=== PATIENT | female | born 1960 | race Caucasian/White ===

== ENCOUNTER 2022-10-18 12:38 | Day surgery (SDC) | payer OTHER ==
[2022-10-18] MEDS ORDERED: LIDOCAINE HCL 2% 100 MG/5 ML IJ ONE (12:39)
[2022-10-18] MEDS ORDERED: DIPRIVAN 200 MG/20 ML IV ONE (14:20)
--- NOTE | 2022-10-18 15:08 | XRAY ---
Indication: Bilateral L4-S1 MBB. Intraoperative fluoroscopy provided for 14 seconds. Single digital spot image submitted for interpretation demonstrates posterior needle tips projecting over the expected left and right L4-S1 nerve roots. Correlate with intraoperative findings/report.
[2022-10-18] MEDS ORDERED: Lactated Ringers 1,000 ML IV ONE (16:17)
--- NOTE | 2022-10-18 16:27 | XRAY ---
14 seconds of fluoroscopy was used in surgery for a bilateral L4-S1 MBB.
== END 2022-10-18 14:50 | disposition home or self-care (01) ==
LOC: SDC-PAIN 12:38
PROVIDERS: ATTEND Psychiatry & Neurology Pain Medicine
DX: M47.816 Spondylosis without myelopathy or radiculopathy, lumbar region (principal); Z79.899 Other long term (current) drug therapy
CPT/HCPCS: 64493; 64494; 72020; 77002; J2704

== ENCOUNTER 2023-02-14 12:40 | Day surgery (SDC) | payer OTHER ==
[2023-02-14] MEDS ORDERED: Depo-Medrol 40 MG/ML IM ONE (12:41)
[2023-02-14] MEDS ORDERED: BUPIVACAINE 0.5% VIAL IJ ONE (12:41)
[2023-02-14] MEDS ORDERED: Versed 2 MG/2 ML Injection ONE (15:18)
[2023-02-14] MEDS ORDERED: DIPRIVAN 200 MG/20 ML IV ONE (16:28)
[2023-02-14] MEDS ORDERED: Lactated Ringers 1,000 ML IV ONE (17:05)
--- NOTE | 2023-02-14 21:26 | XRAY ---
Indication: Bilateral SI joint injection. Intraoperative fluoroscopy provided for 16 seconds. 4 digital spot image submitted for interpretation demonstrates posterior needle tip projecting over the expected left and right SI joint. Correlate with intraoperative findings/report.
--- NOTE | 2023-02-15 09:39 | XRAY ---
16 seconds of fluoroscopy was used in surgery for a bilateral sacroiliac joint injection.
== END 2023-02-14 17:00 | disposition home or self-care (01) ==
LOC: SDC-PAIN 12:40
PROVIDERS: ATTEND Psychiatry & Neurology Pain Medicine
DX: M46.1 Sacroiliitis, not elsewhere classified (principal)
CPT/HCPCS: 27096; 72202; 77002; G0260; J1030; J2250; J2704

== ENCOUNTER 2023-04-18 13:47 | Day surgery (SDC) | payer OTHER ==
[2023-04-18] MEDS ORDERED: BUPIVACAINE 0.5% VIAL IJ ONE (13:48)
[2023-04-18] MEDS ORDERED: DIPRIVAN 200 MG/20 ML IV ONE (16:06)
[2023-04-18] MEDS ORDERED: Lactated Ringers 1,000 ML IV ONE (17:00)
--- NOTE | 2023-04-18 17:15 | XRAY ---
Indication: Bilateral L4-S1 MBB. Intraoperative fluoroscopy provided for 11 seconds. Single digital spot image submitted for interpretation demonstrates posterior needle tips projecting over the expected left and right L4-S1 nerve roots. Correlate with intraoperative findings/report.
--- NOTE | 2023-04-18 17:23 | XRAY ---
11 seconds of fluoroscopy was used in surgery for a bilateral L4-S1 MBB.
== END 2023-04-18 16:36 | disposition home or self-care (01) ==
LOC: SDC-PAIN 13:47
PROVIDERS: ATTEND Psychiatry & Neurology Pain Medicine
DX: M47.816 Spondylosis without myelopathy or radiculopathy, lumbar region (principal)
CPT/HCPCS: 64493; 64494; 72020; 77002; J2704

== ENCOUNTER 2023-06-20 13:26 | Day surgery (SDC) | payer OTHER ==
[2023-06-20] MEDS ORDERED: Depo-Medrol 40 MG/ML IM ONE (13:27)
[2023-06-20] MEDS ORDERED: BUPIVACAINE 0.5% VIAL IJ ONE (13:27)
[2023-06-20] MEDS ORDERED: XYLOCAINE-MPF 1% 5ML SDV IJ ONE (13:27)
[2023-06-20] MEDS ORDERED: Pepcid 20 MG VIAL IV ONE (13:52)
[2023-06-20] MEDS ORDERED: Reglan 10 MG/2 ML ONE (13:52)
[2023-06-20] MEDS ORDERED: Lactated Ringers 1,000 ML IV ONE (14:25)
[2023-06-20] MEDS ORDERED: DIPRIVAN 200 MG/20 ML IV ONE (14:39)
--- NOTE | 2023-06-20 15:12 | XRAY ---
Indication: Left L4-S1 RFA. Intraoperative fluoroscopy provided for 22 seconds. 3 digital spot image submitted for interpretation demonstrates posterior needle tips projecting over the expected left L4-S1 nerve roots. Correlate with intraoperative findings/report.
--- NOTE | 2023-06-20 15:19 | XRAY ---
22 seconds of fluoroscopy was used in surgery for a left L4-S1 RFA.
== END 2023-06-20 15:10 | disposition home or self-care (01) ==
LOC: SDC-PAIN 13:26
PROVIDERS: ATTEND Psychiatry & Neurology Pain Medicine
DX: M47.816 Spondylosis without myelopathy or radiculopathy, lumbar region (principal)
CPT/HCPCS: 64635; 64636; 72100; 77002; J1030; J2704

== ENCOUNTER 2023-06-27 11:14 | Day surgery (SDC) | payer OTHER ==
[2023-06-27] MEDS ORDERED: Depo-Medrol 40 MG/ML IM ONE (11:15)
[2023-06-27] MEDS ORDERED: BUPIVACAINE 0.5% VIAL IJ ONE (11:15)
[2023-06-27] MEDS ORDERED: XYLOCAINE-MPF 1% 5ML SDV IJ ONE (11:15)
[2023-06-27] MEDS ORDERED: DIPRIVAN 200 MG/20 ML IV ONE (13:22)
[2023-06-27] MEDS ORDERED: Lactated Ringers 1,000 ML IV ONE (13:59)
--- NOTE | 2023-06-27 14:43 | XRAY ---
Indication: Right L4-S1 RFA. Intraoperative fluoroscopy provided for 23 seconds. 5 digital spot images submitted for interpretation demonstrates posterior needle tips projecting over the expected right L4-S1 nerve roots. Correlate with intraoperative findings/report.
--- NOTE | 2023-06-27 15:05 | XRAY ---
23 seconds of fluoroscopy was used in surgery for a right L4-S1 RFA.
== END 2023-06-27 14:00 | disposition home or self-care (01) ==
LOC: SDC-PAIN 11:14
PROVIDERS: ATTEND Psychiatry & Neurology Pain Medicine
DX: M47.816 Spondylosis without myelopathy or radiculopathy, lumbar region (principal)
CPT/HCPCS: 64635; 64636; 72100; 77002; J1030; J2704